=== PATIENT | male | born 1960 | race Caucasian/White ===

== ENCOUNTER 2022-06-20 13:56 | Emergency (ER) | payer OTHER, MEDICARE, MEDICAID, SELFPAY ==
[2022-06-20 14:12] VITALS: BP 145/82; PULSE 88; RESP 19; TEMP 36.1; O2SAT 98; BMI 28.2
--- NOTE | 2022-06-20 14:21 | ED_ITS ---
HPI - Overdose General Chief Complaint: Overdose Stated Complaint: OVERDOSE Time Seen by Provider: 06/20/22 14:21 Source: patient Mode of arrival: EMS Limitations: no limitations History of Present Illness complaint: accidental overdose Onset (ago): minute(s) (just prior to arrival ) Context: Accidental Overdose: wanted to get high Associated symptoms: other (denies any symptoms) Treatments Prior to Arrival: narcan (8mg IN total by PD) Related Data Allergies Allergy/AdvReac Type Severity Reaction Status Date / Time No Known Allergies Allergy Unverified 07/05/20 18:37 Review of Systems Review of Systems: Constitutional : No Fever, No Chills ENT/Mouth : No Ear Pain, No Nasal Congestion, No sore throat Eyes: No Eye Pain, No Swelling, No Redness Cardiovascular : No Chest Pain, No SOB Respiratory : No Cough, No Sputum, No Dyspnea Gastrointestinal : No Nausea, No Vomiting, No Diarrhea, No Hematochezia, No Melena Genitourinary : No Dysuria, No Urinary Frequency, No Hematuria Musculoskeletal : No Myalgias Skin : No Skin Lesions, No rash Neuro : No Weakness, No Numbness, No Paresthesias, No Dizziness, No Headache Psych : no Depression, no SI/HI Heme/Lymph: No Lymphadenopathy Endocrine : No Polyuria, No Polydipsia All other systems reviewed and are negative COUNTS INCLUDE 234 BEDS AT THE [facility] Past Medical History Attestation statement: The following information was validated with the patient. Medical History (Updated 06/20/22 @ 14:27 by Donna Newby DO) At risk for abuse of opiates Social History Social History (Updated 06/20/22 @ 14:21 by Donna Newby DO) Patient Tobacco Use Status: Current everyday Tobacco user Advance Directives: No Advance Directives Information Provided: No Physical Exam Vital Signs: Vital Signs: Last Vital Signs Temp 97 F 06/20/22 14:12 Pulse 88 06/20/22 14:12 Resp 19 06/20/22 14:12 BP 145/82 H 06/20/22 14:12 Pulse Ox 98 06/20/22 14:12 O2 Del Method 06/20/22 14:12 BMI result Body Mass Index 28.2 Appearance: Alert. Oriented X3. No acute distress. Eyes: Pupils equal, round and reactive to light. ENT: Pharynx normal. atraumatic Neck: Normal inspection. Neck supple. CVS: Normal heart rate and rhythm. Pulses normal. Respiratory: No respiratory distress. Breath sounds normal. Abdomen: Soft and nontender. Skin: Skin warm and dry. Normal skin color. Normal skin turgor. Extremities: No lower extremity edema. No calf ttp Neuro: Oriented X 3. No motor deficit. No sensory deficit. Course Course Course Narrative: obs for 1 hour he now states he wants to leave, no need for repeat narcan. He cannot be kept here, patient states he is leaving at this time MDM - Overdose MDM Narrative Medical decision making narrative: 61 yo male with hx of prior opiate abuse came to see a friend today and ended up skin popping heroin and overdosing. He states he hasn't used in years. No trauma no SI. He was given 8mg IN narcan with good response. At this time will observe. He states he carries narcan at home and doesn't need anymore, refusing SUDE evaluation. Discharge Plan Discharge Clinical Impression: Drug overdose Qualifiers: Encounter type: initial encounter Injury intent: accidental or unintentional Qualified Code(s): T50.901A - Poisoning by unspecified drugs, medicaments and biological substances, accidental (unintentional), initial encounter Patient Disposition: Home, Self-Care Instructions: Adult Overdose (ED) Additional Instructions: return to ED for any worsening symptoms or concerns please carry narcan with you at all times
[2022-06-20 15:17] VITALS: PULSE 88; RESP 19; O2SAT 98
== END 2022-06-20 15:20 | disposition home or self-care (01) ==
PROVIDERS: Emergency Provider Emergency Medicine
DX: T40.2X1A Poisoning by other opioids, accidental (unintentional), initial encounter (principal); Y92.9 Unspecified place or not applicable; F17.200 Nicotine dependence, unspecified, uncomplicated; Z71.6 Tobacco abuse counseling; Z79.899 Other long term (current) drug therapy
CPT/HCPCS: 99282